=== PATIENT | female | born 1980 | race Caucasian/White ===

== ENCOUNTER 2023-11-22 19:31 | Emergency (ER) | payer MEDICAID ==
[~2023-11-22] VITALS: Ht 168.3 cm; Wt 90.0 kg
[2023-11-22] MEDS: BACITRACIN 0.9 GM PACKET OINTMENT TP ONE (20:08)
[2023-11-22] MEDS: AMOX TR/POT CLAV 875 MG/125 MG TABLET PO ONE (20:09)
[2023-11-22] MEDS: PERTUSS(ACELL),DIPH,TET/PF 0.5 ML SYRINGE [ADULT] IM. ONE (20:09)
[2023-11-22 20:10] VITALS: BP 131/74; PULSE 69; RESP 16; TEMP 97.3
[2023-11-22] MEDS ORDERED: AMOX1TAB16 PO (20:41)
[2023-11-22] MEDS ORDERED: BACI28.410 TP (20:41)
== END 2023-11-22 21:00 | disposition home or self-care (01) ==
LOC: EMS 19:31
DX: S51.052A Open bite, left elbow, initial encounter (principal); W54.0XXA Bitten by dog, initial encounter; Y93.89 Activity, other specified; Y92.89 Other specified places as the place of occurrence of the external cause; Y99.8 Other external cause status
CPT/HCPCS: 90471; 90715; 99283

== ENCOUNTER 2023-11-23 17:33 | Emergency (ER) | payer MEDICAID ==
[~2023-11-23] VITALS: Ht 160 cm; Wt 77.3 kg
[~2023-11-23 17:33] MED LIST: AMOX1TAB16 PO; BACI28.410 TP
[2023-11-23 17:51] VITALS: BP 115/76; PULSE 89; RESP 18; TEMP 98.7
== END 2023-11-23 19:16 | disposition left against medical advice (07) ==
LOC: EMS 17:33
DX: N64.4 Mastodynia (principal); Z53.21 Procedure and treatment not carried out due to patient leaving prior to being seen by health care provider
CPT/HCPCS: 99281; Z7502